=== PATIENT | female | born 1950 | race Caucasian/White ===

== ENCOUNTER → 2019-05-23 10:46 | Outpatient (CLI) | payer BC, SELFPAY ==
--- NOTE | ~2019-05-23 | MM_ITS ---
EXAMINATION: MM screening [facility] BI w stephon HISTORY: Screening mammogram TECHNIQUE: Craniocaudal and mediolateral oblique 3-D tomosynthesis images were obtained and synthetic 2-D images were generated. CAD analysis was submitted and interpreted. COMPARISON: Comparison to multiple prior studies sequentially, with oldest reviewed study dated 05/2014. BREAST PARENCHYMAL COMPOSITION: There are scattered areas of fibroglandular density. FINDINGS: There is no evidence of suspicious mass, calcification, or architectural distortion to sugg est malignancy in either breast. There has been no suspicious interval change. IMPRESSION: 1. No mammographic evidence of malignancy. 2. Recommend routine screening mammography in one year. BI-RADS Category 1: Negative. Reviewed, dictated and finalized at location A. [employer]
== END ==
PROVIDERS: Visit Provider Nurse Practitioner Family
DX: Z12.31 Encounter for screening mammogram for malignant neoplasm of breast (principal)
CPT/HCPCS: 77063; 77067

== ENCOUNTER → 2020-08-16 17:54 | Outpatient (CLI) | payer BC, SELFPAY ==
--- NOTE | ~2020-08-16 | DEXA_ITS ---
Bone Density Report Name: Opal Le Age: 70 Sex: Female Ethnicity: White Date of : 1950 Indication: postmenopausal; screening for osteoporosis; height loss; Referring Provider: KEYLA, MARK ANTHONY Study: Bone densitometry was performed. Exam Date: August 16, 2020 Accession number: [id number] Bone Density: Region BMD T-score Z-score Classification AP Spine (L1-L4) 1.314 2.4 4.5 Normal Femoral Neck (Left) 0.958 1.0 2.7 Normal Total Hip (Left) 1.363 3.4 4.9 Normal Femoral Neck (Right) 1.038 1.7 3.5 Normal Total Hip (Right) 1.294 2.9 4.3 Normal Total Hip Mean 1.329 3.2 4.6 Normal World Health Organization criteria for BMD impression classify patients as: Normal (T-score at or above -1.0), Osteopenia (T-score between -1.0 and -2.5), or Osteoporosis (T-score at or below -2.5). 10-year Fracture Risk: FRAX not reported because: All T-scores for Spine Total, Hip Total, Femoral Neck at or above -1.0 Previous Exams: Region Exam Age BMD T-score BMD Change BMD Change Date g/cm2 vs Baseline vs Previous AP Spine(L1-L4) 08/16/2020 70 1.314 2.4 -0.012 -0.019 05/11/2016 66 1.333 2.6 0.007 0.038 04/04/2010 59 1.295 2.3 -0.031 -0.031 02/21/2007 56 1.326 2.5 Total Hip(Left) 08/16/2020 70 1.363 3.4 0.064* 0.006 05/11/2016 66 1.357 3.4 0.059* 0.036 04/04/2010 59 1.321 3.1 0.022 0.022 02/21/2007 56 1.299 2.9 Total Hip(Right) 08/16/2020 70 1.294 2.9 0.042* 0.019 05/11/2016 66 1.274 2.7 0.023 0.035 04/04/2010 59 1.240 2.4 -0.012 -0.012 02/21/2007 56 1.251 2.5 *Denotes significance at 95% confidence level, LSC for AP Spine = 0.022 g/cm2, LSC for Total Hip = 0.027 g/cm2 Clinical Information Provided by Patient: Has used the following medications: Vitamin D, MTV Patient maximum height was 68.0 Menopause Age: 56 No regular weight bearing exercise Does not regularly consume dairy products Drinks caffeinated beverages Onset of menses at age 13 Number of children 2 Impression: The patient has normal bone mass. No significant bone loss was observed. Discussion: LOW RISK OF FRACTURE; BONE DENSITY IS WELL ABOVE THE MINIMUM DESIRABLE LEVEL AND ABOVE AVERAGE FOR AGE AND SEX AT ALL SKELETAL SITES TESTED. This perso
--- NOTE | ~2020-08-16 | MM_ITS ---
EXAMINATION: MM screening [facility] BI w stephon HISTORY: Screening mammogram TECHNIQUE: Craniocaudal and mediolateral oblique 3-D tomosynthesis images were obtained and synthetic 2-D images were generated. CAD analysis was submitted and interpreted. COMPARISON: 05/23/2019, 05/20/2018, 05/14/2017 bilateral digital screening mammogram examinations BREAST PARENCHYMAL COMPOSITION: The breasts are almost entirely fatty. FINDINGS: Scattered benign calcifications. There is no evidence of suspicious mass, calcification, or architectural distortion to suggest malignancy in either breast. There has been no suspicious interv al change. IMPRESSION: 1. No mammographic evidence of malignancy. 2. Recommend routine screening mammography in one year. BI-RADS Category 1: Negative Reviewed, dictated and finalized at location A.
== END ==
PROVIDERS: Visit Provider Nurse Practitioner
DX: Z12.31 Encounter for screening mammogram for malignant neoplasm of breast (principal); Z78.0 Asymptomatic menopausal state
CPT/HCPCS: 77063; 77067; 77080

== ENCOUNTER → 2021-10-01 14:27 | Outpatient (CLI) | payer BC, SELFPAY ==
--- NOTE | ~2021-10-01 | MM_ITS ---
EXAMINATION: MM screening [facility] BI w stephon HISTORY: Screening TECHNIQUE: Craniocaudal and mediolateral oblique 3-D tomosynthesis images were obtained and synthetic 2-D images were generated. CAD analysis was submitted and interpreted. COMPARISON: Comparison to multiple prior studies sequentially, with oldest reviewed study dated 05/08. BREAST PARENCHYMAL COMPOSITION: The breasts are almost entirely fatty. FINDINGS: There is no evidence of suspicious mass, calcification, or architectural distortion to sugg est malignancy in either breast. There has been no suspicious interval change. IMPRESSION: 1. No mammographic evidence of malignancy. 2. Recommend routine screening mammography in one year. BI-RADS Category 1: Negative Reviewed, dictated and finalized at location A.
== END ==
PROVIDERS: PCP Internal Medicine; Visit Provider Nurse Practitioner
DX: Z12.31 Encounter for screening mammogram for malignant neoplasm of breast (principal)
CPT/HCPCS: 77063; 77067

== ENCOUNTER → 2023-02-11 11:32 | Outpatient (CLI) | payer BC, SELFPAY ==
--- NOTE | ~2023-02-11 | MM_ITS ---
EXAMINATION: MM screening [facility] BI w stephon HISTORY: Screening mammogram TECHNIQUE: Craniocaudal and mediolateral oblique 3-D tomosynthesis images were obtained and synthetic 2-D images were generated. CAD analysis was submitted and interpreted. COMPARISON: 10/01/2021, 08/16/2020, 05/23/2019 BREAST PARENCHYMAL COMPOSITION: The breasts are almost entirely fatty. FINDINGS: No suspicious mass, calcification, or architectural distortion are identified in either nicola ast to suggest malignancy. There has been no suspicious interval change. IMPRESSION: 1. No mammographic evidence of malignancy. 2. Recommend routine screening mammography in one year. BI-RADS Category 1: Negative Reviewed, dictated and finalized at location A. INE RIVETER
== END ==
PROVIDERS: PCP Nurse Practitioner; Visit Provider Nurse Practitioner
DX: Z12.31 Encounter for screening mammogram for malignant neoplasm of breast (principal)
CPT/HCPCS: 77063; 77067

== ENCOUNTER 2024-06-27 13:43 | Outpatient (CLI) | payer BC, SELFPAY ==
--- NOTE | ~2024-06-27 | MM_ITS ---
EXAMINATION: MM screening [facility] BI w stephon HISTORY: Screening TECHNIQUE: Craniocaudal and mediolateral oblique 3-D tomosynthesis images were obtained and synthetic 2-D images were generated. CAD analysis was submitted and interpreted. COMPARISON: Comparison to multiple prior studies sequentially, with oldest reviewed study dated 05/14. BREAST PARENCHYMAL COMPOSITION: Not Dense: The breasts are almost entirely fatty. FINDINGS: There is no evidence of suspicious mass, calcification, or architectural distortion to sugg est malignancy in either breast. There has been no suspicious interval change. IMPRESSION: 1. No mammographic evidence of malignancy. 2. Recommend routine screening mammography in one year. BI-RADS Category 1: Negative Reviewed, dictated and finalized at location A.
== END 2024-06-27 13:44 | disposition home or self-care (01) ==
LOC: MICIMG 13:45
PROVIDERS: PCP Nurse Practitioner; Visit Provider Nurse Practitioner
DX: Z12.31 Encounter for screening mammogram for malignant neoplasm of breast (principal)
CPT/HCPCS: 77063; 77067

== ENCOUNTER 2024-07-06 08:13 | Outpatient (CLI) | payer BC, SELFPAY ==
--- NOTE | ~2024-07-06 | DEXA_ITS ---
Bone Density Report Name: MELANIE VÁZQUEZ Age: 74 Sex: Female Ethnicity: White Date of : 1950 Indication: postmenopausal; screening for osteoporosis; height loss; Referring Provider: KEYLA, MARK ANTHONY Study: Bone densitometry was performed. Exam Date: July 06, 2024 Accession number: [id number] Bone Density: Region BMD T-score Z-score Classification AP Spine(L1-L4) 1.285 2.2 4.5 Normal Femoral Neck (Left) 0.910 0.6 2.5 Normal Total Hip (Left) 1.273 2.7 4.4 Normal Femoral Neck (Right) 0.866 0.1 2.1 Normal Total Hip (Right) 1.208 2.2 3.9 Normal Total Hip Mean 1.240 2.5 4.2 Normal World Health Organization criteria for BMD impression classify patients as: Normal (T-score at or above -1.0), Osteopenia (T-score between -1.0 and -2.5), or Osteoporosis (T-score at or below -2.5). 10-year Fracture Risk: FRAX not reported because: All T-scores for Spine Total, Hip Total, Femoral Neck at or above -1.0 Clinical Information Provided by Patient: Has used the following medications: Vitamin D Patient maximum height was 67 Menopause Age: 54 No regular weight bearing exercise Drinks caffeinated beverages Onset of menses at age 14 Number of children 2 Impression: The patient has normal bone mass. Discussion: LOW RISK OF FRACTURE; BONE DENSITY IS WELL ABOVE THE MINIMUM DESIRABLE LEVEL AND ABOVE AVERAGE FOR AGE AND SEX AT ALL SKELETAL SITES TESTED. This person's bone density is above expected limits for age and sex. This is rarely clinically significant, but should be pursued if there are significant musculoskeletal complaints. The patient should follow a healthful lifestyle (good nutrition with adequate calcium and vitamin D, and appropriate weight-bearing exercise). Follow-Up: Consider repeating this study in 5 years or sooner if there is some new clinical indication. Reported by: MOHAN on 07/06/2024 8:58:00 AM. Reviewed, dictated and finalized at location [facility]
--- OUTSIDE RECORDS SUMMARY | 2024-07-06 08:18 | XMS_ITS | Data Portability ---
Author Organization [place] [facility] [employer], Main Office Address [address] [place] [address] Assessment Encounter Date Assessment Date Assessment LastModified by Organization Details LastModified Time 03/12/2023 03/12/2023 the patient has severe primary osteoarthritis both knee joints. The right knee is the only 1 that bothers her. We talked about treatment options today in detail she wanted proceed with cortisone therefore under sterile conditions I injected the patient's right knee joint in the office with 4 cc 0.5% bupivacaine and 20 mg of Kenalog. Patient tolerated the procedure well. If her knee continues to bother her we did talk about the possibility of trying gel shots. What she really needs his total knee arthroplasty for the best long-term relief however she has a BMI of 45 she would need to lose some significant weight we have talked about this previously. She will work on that I will see her back as needed she will continue with current conservative measures call for any further problems difficulties or questions she voiced understanding agrees above plan. I have advised her that if she wants to try gel shots to call us and advanced we can get those approved as well. Not available 03/12/2023 13:00:58 07/01/2023 07/01/2023 The patient has severe primary osteoarthritis both knees left knee does not bother her right 1 hurts medially we talked about treatment options we have discussed gel shot series possibility she is going to think about it I gave her a brochure on this today but cortisone typically works well for her. Therefore under sterile conditions I injected the patient's right knee joint in the office with 4 cc 0.5% Marcaine and 20 mg of Kenalog. Patient tolerated procedure well. I will see her back as needed we can do this again in 3 months if necessary if she wants to do the gel shots she will call she voiced understanding agrees above plan. Not available 07/01/2023 13:55:22 09/27/2023 09/27/2023 The patient has severe primary osteoarthritis of both knees the right knee is 1 that bothers her. She would like this injected today therefore under sterile conditions I injected the patient's right knee joint in the office with 4 cc of 0.5% Marcaine and 20 mg of Kenalog. Patient tolerated procedure well. I will see her back as needed we can do this again in 3 months if necessary she voiced understanding and agrees with the above plan she will call for any further problems difficulties or questions. Not available 09/27/2023 11:20:39 12/28/2023 12/28/2023 The patient has severe primary osteoarthritis of both knees the left knee does not ever bother her. The right knee gives her a lot of trouble particularly with the medial side where she has burning aching pain that limits her activities. We talked about treatment options today she wanted proceed with cortisone therefore under sterile conditions I injected the patient's right knee joint in the office with 4 cc of 0.5% Marcaine and 20 mg of Kenalog. Patient tolerated the procedure well. She was also given a refill of her diclofenac sodium 75 mg b.i.d. with food. She will use this when needed. I will see her back as needed we can do a shot again in 3 months if necessary, we also talked about gel shots in detail but the cortisone works very well for her so she is going to stick with that for now. She is aware that she would need to lose some weight in order to qualify for total knee arthroplasty somewhere down the road as her BMI is 43.5. She voiced understanding and agrees above plan she will call for any further problems difficulties or questions. Not available 12/28/2023 14:39:29 03/30/2024 03/30/2024 the patient has severe primary osteoarthritis both knee joints. The right knee bothers her the left side does not. At her request under sterile conditions I injected the patient's right knee joint in the office with 4 cc of 0.5% bupivacaine and 20 mg of Kenalog. Patient tolerated the procedure well. I will see her back as needed we can do this again in 3 months if necessary. She did need a refill on her diclofenac 75 mg b.i.d. with food this was called into her pharmacy today with a couple of refills. She will continue work on weight loss in anticipation of likely total knee arthroplasty somewhere down the road. She voiced understanding and agreed with the above plan. Not available 03/30/2024 13:54:57 Plan of Treatment Reminders Order Date Submit Date Provider Last Modified By Organization Details Last Modified Time Details Appointments Any 5 2024 01:30P DEON Fonseca Not available Not available Not available Lab None recorded. Referral None recorded. Procedures injection /aspirati on joint/bur sa (PROC) 2024 025 [email or web address] In-Office Order, Internal Use Only DO Not Attach Compendium DO Not Attach Compendium, Do Not Delete/merge, [id number] 03/30/2024 13:42:26 injection /aspirati on joint/bur sa (PROC) - in office procedure , administe red by provider 2023 024 [email or web address] In-Office Order, Internal Use Only DO Not Attach Compendium DO Not Attach Compendium, Do Not Delete/merge, [id number] 12/28/2023 14:15:34 injection /aspirati on joint/bur sa (PROC) - in office procedure , administe red by provider 2023 024 [email or web address] In-Office Order, Internal Use Only DO Not Attach Compendium DO Not Attach Compendium, Do Not Delete/merge, [id number] 09/27/2023 11:11:11 injection /aspirati on joint/bur sa (PROC) - in office procedure , administe red by provider 2023 024 [email or web address] In-Office Order, Internal Use Only DO Not Attach Compendium DO Not Attach Compendium, Do Not Delete/merge, [id number] 07/01/2023 13:43:30 injection /aspirati on joint/bur sa (PROC) 2022 023 [email or web address] In-Office Order, Internal Use Only DO Not Attach Compendium DO Not Attach Compendium, Do Not Delete/merge, [id number] 03/12/2023 12:18:44 Surgeries None recorded. Imaging XR, knee 2023 024 [email or web address] [facility] [place], [address], [place], [address], 12/28/2023 14:56:37 Medication Orders bupivacai ne HCl 0.5 % (5 mg/mL) injection solution [address] [facility]83, [address] [place] [address], [id number], 03/30/2024 14:22:37 Kenalog 10 mg/mL suspensio n for injection 2024 025 [address] [facility], [address] [place] [address], [id number], 03/30/2024 14:22:37 diclofena c sodium 75 mg tablet,de layed release [address] [facility]29355, [address] [place] [address], [id number], 03/30/2024 14:22:37 Kenalog 10 mg/mL suspensio n for injection [address] [facility]59691, [address] [place] [address], [id number], 12/28/2023 14:20:41 Marcaine 0.5 % (5 mg/mL) injection solution 2023 024 [address] [facility], [address] [place] [address], [id number], 12/28/2023 14:20:41 diclofena c sodium 75 mg tablet,de layed release 2023 [facility] #04068, [address] [place] [address], [id number], 12/28/2023 16:18:33 Marcaine (PF) 0.5 % (5 mg/mL) injection solution [address] [place] [address] [facility] #94043, [address] [place] [address], [id number], 12/28/2023 14:12:50 Kenalog 10 mg/mL suspensio n for injection [address] [facility] #41594, [address] [place] [address], [id number], 12/28/2023 14:12:44 Kenalog 10 mg/mL suspensio n for injection [address] [facility] #01581, [address] [place] [address], [id number], 12/28/2023 14:12:44 Marcaine (PF) 0.5 % (5 mg/mL) injection solution [address] [facility] #49687, [address] [place] [address], [id number], 12/28/2023 14:12:50 bupivacai ne HCl 0.5 % (5 mg/mL) injection solution [address] [facility] #44618, [address] [place] [address], [id number], 12/28/2023 14:12:38 Kenalog 10 mg/mL suspensio n for injection [address] [facility] #84561, [address] [facility], [place], [place], [id number], 12/28/2023 14:12:44 Patient TargetsNo targets recorded. Patient InstructionsNo instructions recorded. Reason for Referral None Reported. Results Created Date Observation Date Name Description Value Unit Range Abnormal Flag Note LastModifiedBy Organization Detail LastModifiedTime 12/28/19 24 XR, knee No observ ation record ed. [facility] [place] [address], [place], [address], 12/28/2023 14:40:46 Result Notes None recorded. Problems Name Problem SNOMED Code Status Onset Date Resolution Date Notes Provider Name and Address Organization Details Recorded Time Bilateral osteoarthr itis of knees 4606374334111 07 Active 2022 Not Available [facility] 3 23:08:25 Pain of right knee joint 0050353094584 00 Active 2022 Not Available [facility] 3 23:08:25 Osteoarthr itis of right knee joint 7251647672658 00 Active 2023 ANAND Nunez, [facility] 4 14:13:48 Osteoarthr itis of left knee joint 4505399664126 09 Active 2023 DEON Valdez [address] [facility] [address], [place], [address] , [facility] 4 14:41:04 Problem Notes None recorded. Procedures Surgical History Date Name Laterality Status Provider Name and Address Organization Details Recorded Time Cholecystectomy completed Not Available [facility] 05/27/2022 23:06:17 repair of meniscus completed Not Available [facility] 05/27/2022 23:06:17 Imaging Results Imaging Date Name Status LastModified by Organiz ation Details LastModified Time 12/28/2023 XR, knee completed [facility] [place] [address], [place], [address], 12/28/2023 14:40:46 Procedure Notes None recorded. Medical Equipment None Reported. Allergies No known drug allergies Medications Name Sig Start Date Stop Date Status Note LastModified by Organization Details LastModified Time citalopram 40 mg tablet TAKE 1 TABLET BY MOUTH EVERY DAY active Not Available Not Available No t Available trazodone 50 mg tablet TAKE 1 TABLET BY MOUTH AT BEDTIME active Not Available Not Available No t Available ondansetron HCl 4 mg tablet TAKE 1 TO 2 TABLETS BY MOUTH 30 MINUTES PRIOR TO STARTING COLONSCOP Y PREP 12/27 completed Not Available Not Available Not Available bupivacaine HCl 0.5 % (5 mg/mL) injection solution Take 20 mg by injection route. 2024 active Not Available Not Available Not Avai lable Kenalog 10 mg/mL suspension for injection Take 20 mg by injection route. 2024 active [facility]: 0003- 0494- 20 Not Available Not Available Not Available simvastatin 20 mg tablet TAKE 1 TABLET BY MOUTH EVERY EVENING active Not Available Not Available No t Available diclofenac sodium 75 mg tablet,steff yed release Take 1 tablet twice a day by oral route. active Not Available Not Available No t Available ergocalcife rol (vitamin D2) 1,250 mcg (50,000 unit) capsule TAKE 1 CAPSULE BY MOUTH 3 TIMES A MONTH active Not Available Not Available No t Available Marcaine (PF) 0.5 % (5 mg/mL) injection solution Take 20 mg by injection route. 12/27 completed Not Available Not Available Not Available lidocaine (PF) 10 mg/mL (1 %) injection solution In office injection administe red by the provider 10/06 completed [place]: 0409- 4276- 17 Not Available Not Available Not Available peg 3350-electr olytes 236 gram-22.74 gram-6.74 gram-5.86 gram solution FOLLOW INSTRUCTI ONS PROVIDED BY THE OFFICE 12/27 completed Not Available Not Available Not Available ropivacaine (PF) 5 mg/mL (0.5 %) injection solution Take 20 mg by injection route. 12/27 completed [facility] [address]405 -064- 01 Not Available Not Available Not Available Vitals Date Recorded Body height Body mass index (BMI) Body weight Provider Name and Address Organization Details Last Updated DateTime 03/12/2023 170.18 cm 44.2 kg/m2 593452.05 g Cheryle Quiroga CNA [facility] [employer] [facility] 03/12/2023 12:16:41 Date Recorded Body height Body mass index (BMI) Body weight Provider Name and Address Organization Details Last Updated DateTime 07/01/2023 170.18 cm 43.4 kg/m2 864100.09 g Cheryle JunaidANAND lemus [facility] [employer] 07/01/2023 13:41:51 Date Recorded Body height Body mass index (BMI) Body weight Provider Name and Address Organization Details Last Updated DateTime 09/27/2023 170.18 cm 43.4 kg/m2 624121.09 g Cheryle JunaidANAND lemus [facility] [employer] 09/27/2023 11:08:36 Date Recorded Body height Body mass index (BMI) Body weight Provider Name and Address Organization Details Last Updated DateTime 12/28/2023 170.18 cm 43.5 kg/m2 759979.68 g Cheryle Junaid, [employer] [employer] 12/28/2023 14:12:11 Date Recorded Body height Body mass index (BMI) Body weight Provider Name and Address Organization Details Last Updated DateTime 03/30/2024 170.18 cm 41.5 kg/m2 605632.98 g Cheryle Junaid, [employer] [facility] [employer] 03/30/2024 13:40:21 Social History Question Answer Notes LastModified by Organizat ion Details LastModified Time Tobacco Smoking Status Never Smoker Not Available [facility] 05/27/2022 23:05:58 What Is Your Level Of Alcohol Consumption? None [id number] Information not available 05/27/2022 How Much Tobacco Do You Smoke? No [id number] Information not available 05/27/2022 Sex: Unknown Functional Status None recorded. Mental Status None recorded. Family History Relationship Description Onset Age of this Age Resolved Age Notes LastModified by Organization Details LastModified Time Mother Family history of malignant neoplasm [id number] Not available 05/27/2022 23:06:22 Maternal Aunt Family history of malignant neoplasm [id number] Not available 05/27/2022 23:06:22 Medical History No medical history recorded. Gynecological HistoryNo gynecological history recorded. Obstetrics History GPAL:G 0 P 0 0 0 0 Past Encounters Encounter ID Performer Location Encounter Start Date Encounter Closed Date Diagnosis/Indication Diagnosis SNOMED-CT Code Diagnosis ICD10 Code Diagnosis Note [id number] [facility] [place] [address] [place] [address] 08/30/2020 00:00:00 08/30/2020 15:16:19 [id number] [facility] [place] [address] [place] [address] 10/04/2020 00:00:00 10/04/2020 14:17:51 [id number] [facility] [place] [address] [place] [address] 05/22/2021 00:00:00 05/22/2021 11:21:55 [id number] [facility] [place] [address] [place] [address] 10/06/2021 00:00:00 10/06/2021 12:01:22 [id number] [facility] [place] [address] [place] [address] 02/06/2022 00:00:00 02/06/2022 14:24:54 [id number] [facility] [place] [address] [place] [address] 05/25/2022 00:00:00 05/25/2022 13:13:02 [id number] DEON Valdez [facility] [place] [address] [place] [address] 08/25/2022 13:55:03 08/25/2022 14:56:24 Pain of right knee joint 4592038848 50884 M25.561 Bilateral osteoarthritis of knees 6888755690 87799 M17.0 [id number] DEON Valdez [facility] [place] [address] [place] [address] 11/27/2022 14:09:26 11/27/2022 14:42:28 Pain of right knee joint 0769343800 45616 M25.561 Bilateral osteoarthritis of knees 5100307465 55652 M17.0 [id number] DEON Valdez [facility] [place] [address] [place] [address] 03/12/2023 12:06:08 03/18/2023 16:39:00 Bilateral osteoarthritis of knees 9426722773 04782 M17.0 Pain of ri ght knee joint 1559352292 99100 M25.561 [id number] DEON Valdez [facility] [place] [address] [place] [address] 07/01/2023 13:38:49 07/01/2023 14:01:16 Bilateral osteoarthritis of knees 9657728425 56477 M17.0 Pain of ri ght knee joint 3492478219 95470 M25.144 [id number] DEON Valdez [facility] [place] [address] [place] [address] 09/27/2023 10:59:26 09/27/2023 11:32:25 Bilateral osteoarthritis of knees 8405568463 62817 M17.0 Pain of ri ght knee joint 1877941760 02384 M25.044 [id number] DEON Valdez [facility] [place] [address] [place] [address] 12/28/2023 13:56:54 12/28/2023 14:56:37 Pain of right knee joint 2808430500 33883 M25.561 Osteoarthr itis of right knee joint 4663880901 85659 M17.11 Osteoarthr itis of left knee joint 0529043737 84722 M17.12 [id number] DEON Valdez [facility] [place] [address] [place] [address] 03/30/2024 13:36:50 03/30/2024 14:24:04 Osteoarthritis of right knee joint 1419358515 93310 M17.11 Pain of ri ght knee joint 6860473884 33158 M25.561 Health Concerns Section Related Observation LastModified by Organization Detai ls LastModified Time None Recorded Concern Status LastModified by Organization Details LastModified Time None Recorded Advance Directives Directive None Recorded Payers Encounter Date Sequence Insurance Name Policy Number Policy Ruiz Covered Member ID Ruiz Member ID Guarantor Name 03/12/2023 1 [employer] [employer] [place] [place] [place] 104 Opal Le [id number] Opal Bearffer 07/01/2023 1 [employer] 104 Opal Le [id number] Opal Le 09/27/2023 1 [employer] 104 Opal Le [id number] Opal Le 12/28/2023 1 [employer] 104 Opal Bearffer [id number] Opal Bearffer 03/30/2024 1 [employer] 104 Opal Le [id number] Opal Bearffer Notes Date Note Type Note Provider Name and Address Organization Details Recorded Time 03/12/2023 text/html Patient returns with right knee pain. She has severe primary osteoarthritis both knees with [id number]-[id number] changes in medial compartments and varus deformities. Subchondral sclerosis and hypertrophic spurring is also noted patellofemoral articulation shows significant narrowing as well with hypertrophic changes. Surprisingly she states her left knee really does not bother her despite the fact that the knees look similar side to side on x-ray. Right knee has aching pain mostly medially occasion the knee feels as though it wants to give out because of sharp stabbing pains. Shot of cortisone to give her good relief for couple of months it has been 3-1/2 months since her last injection she would like another 1 today. Denies any new trauma injury no effusion or swelling no erythema heat or other signs of infection. DEON Valdez [address] [place] [address], [facility] [address], [place], [address], [facility] 03/12/2023 13:01:15 07/01/2023 text/html Patient returns with right knee pain she is severe primary osteoarthritis both knees with [id number]-[id number] changes in medial compartments however her left knee does not bother her. Her right knee aches and throbs on the medial compartment she has startup pain rest pain and night pain it bothers her quite a bit but shot of cortisone to give her excellent relief for about 3 months it has been 3-1/2 months since her last injection. She would like to repeat this today denies any new problems with the knee no new trauma or injury no erythema effusion or signs of infection. DEON Valdez [address], [place], [address], [facility] 07/01/2023 13:55:55 09/27/2023 text/html Patient returns for recheck of her right knee she has severe primary osteoarthritis both knees but the left knee does not bother her. The right knee gets good relief from cortisone for almost exactly 3 months then she comes back it has been 3 months since her last injection last week or 2 she has been having more pain about an 8 on a scale of 1-10 and limping. Denies any effusion or swelling no erythema heat or other signs of infection and no new trauma or injury. She would like another shot of cortisone right knee today. DEON Valdez [address], [place], [address], [facility] 09/27/2023 11:20:51 12/28/2023 text/html Patient returns with right knee pain she comes in every 3 months for cortisone injections the injections gave her great relief for about 3 months at a time. She denies any new problems with the knee no new trauma or injury she is having a lot of pain in the medial compartment however. This just flared up recently her pain is about a 7 to an 8 on a scale of 1-10 denies any effusion or swelling has aching pain particularly with ambulation squatting kneeling going up and down stairs. She is now somewhat limited in her daily activities recently she ran out of her diclofenac so this is also causing her to have a little more pain. She comes in today requesting repeat cortisone injection right knee we are getting new updated x-rays today as it has been more than a year since her last x-rays. New past medical history sheet was reviewed and signed on the intake sheet of today's date drug allergies current medications family social history previous surgical history 10 point review of systems was reviewed and discussed in detail today with the patient. The patient is pretty healthy she has some high cholesterol but otherwise fairly unremarkable. DEON Valdez [address], [facility] [address], [place], [address], [facility] 12/28/2023 14:41:43 03/30/2024 text/html Patient returns with right knee pain shots of cortisone every 3 months gave her very good relief in the last almost 3 months. Her knee is flared up again since her last injections she would like to repeat that shot today denies any new problems with the knee no new trauma or injury she states she has lost a few lb recently and this seems to be helping her knee pain also she is going to continue work on weight loss. Currently she is 5 ft 7 in tall 265 lb BMI is a little too high for total knee arthroplasty she is going to work on that. She comes in today requesting repeat cortisone injection right knee she has severe primary osteoarthritis in both knees left knee never really bothers her. Her x-rays 3 months ago show mild varus deformities of both knees with ahfr-tk-bnsa changes in the medial compartments and subchondral thickening particularly in the medial tibial plateau. Complete loss of the medial joint space is noted bilaterally. The patellofemoral articulations show moderate narrowing with very small marginal osteophytes. DEON Valdez [address], [facility] [address], [place], [address], [facility] 03/30/2024 13:55:13 OBGyn Episode No OBEpisode recorded.
--- OUTSIDE RECORDS SUMMARY | 2024-07-06 08:18 | XMS_ITS | Clinical Summary ---
Author Organization [facility] Address [address] [place] [address] Care Team Providers Care Bag Bundler Name Role Phone Tanya Matute MD Primary Care Provider Source Comments [facility],non-owned Affiliates and Associated Physician Practices is amultiple site organization consisting of ambulatory clinics and hospital sitesin [place], [place]. This disclosure is being madepursuant to the Care Everywhere program and may not contain all information available regarding this patient. Last updated 17.[employer] [facility] Allergies No known active allergies Medications * Be aware that medications may not be up to date on this document. Alwaysverify current medications with the patient. Medication Sig Dispensed Refills Start Date End Date Status zolpidem (AMBIEN) 10 MG tablet Take 10 mg by mouth nightly as needed for Insomnia. Active vitamin D 1000 [place] [address] Units by mouth daily. Active multivitamin daily tablet Take 1 Tab by mouth daily. Active calcium carbonate (CALTRATE) 600 MG tablet Take 600 mg by mouth daily. Active Social History Tobacco Use Types Packs/Day Years Used Date Smoking Tobacco: Never Alcohol Use Standard Drinks/Week Comments No 0 (1 standard drink = 0.6 oz pur e alcohol) Sex and Gender Information Value Date Recorded Sex Assigned at Not on file Gender Identity Not on file Sexual Orientation Not on file Last Filed Vital Signs Vital Sign Reading Time Taken Comments Blood Pressure 127/69 04/22/2009 6:41 PM HOME ECONOMICS EXPERT Pulse 85 04/22/2009 6:41 PM HOME ECONOMICS EXPERT Temperature 36.1 C (97 F) 04/22/2009 4:11 PM HOME ECONOMICS EXPERT Respiratory Rate 16 04/22/2009 4:54 PM HOME ECONOMICS EXPERT Oxygen Saturation 98% 04/22/2009 6:41 PM HOME ECONOMICS EXPERT Inhaled Oxygen Concentration - - Weight 108.4 kg (239 lb) 04/22/2009 10:18 AM HOME ECONOMICS EXPERT Height 172.7 cm (5' 8 ) 04/22/2009 10:18 AM HOME ECONOMICS EXPERT Body Mass Index 36.34 04/22/2009 10:18 AM HOME ECONOMICS EXPERT Plan of Treatment Health Maintenance Due Date Last Done Comments BONE DENSITY TESTING 1950 COLOGUARD (AGES 45-75) - COL ON CA SCREENING 1951 COLON MONITORING 1951 COLONOSCOPY - COLON CA SCREENING 1950 CT COLONOGRAPHY - COLON CA SCREENING 1950 Colorectal Cancer Screening 1950 FIT - COLON CA SCREENING 1951 FLEX SIG - COLON CA SCREENING 1951 LIPID TESTING 1950 MAMMOGRAM 1951 HEPATITIS C SCREENING 04/23/1969 DTAP/TDAP/TD VACCINES (1 - Tdap) 1970 PNEUMOCOCCAL VACCINE 50+ (1 of 1 - PCV) 2001 ZOSTER VACCINE (1 of 2) 2001 COVID-19 VACCINE (1 - 2023-2 5 season) 2023 DEPRESSION SCREENING 03/29/2024 INFLUENZA VACCINE (Season Ended) 2024 Respiratory Syncytial Virus (RSV) Vaccine Pt: or over 60 yrs (1 - 1-dose 75+ series) 2026 HEPATITIS B VACCINE Aged Out No longe r eligible based on patient's age to complete this topic HIB VACCINE Aged Out No longer eligi ble based on patient's age to complete this topic HPV VACCINE Aged Out No longer eligi ble based on patient's age to complete this topic MENINGOCOCCAL (Group B) VACC INE SHARED DECISION-MAKING Aged Out No longer eligibl e based on patient's age to complete this topic MENINGOCOCCAL GROUPS A/C/Y/W VACCINE Aged Out No longer eligible b ased on patient's age to complete this topic Advance Directives Documents on File Type Date Recorded Patient Visitor Services Specialist Expl anation Adv Directive/Living Will/POA 05/01/2009 10:25 AM Care Teams Bag Bundler Relationship Specialty Start Date End Date Tanya Matute MD [address] [phone] [facility] - General 04/03/09
--- OUTSIDE RECORDS SUMMARY | 2024-07-06 08:18 | XMS_ITS | Continuity of Care Document ---
Author Organization [facility] Address [address] [place] [address] Phone Care Team Providers Care Rental Boats Caretaker Name Role Phone Tanya Matute MD Unavailable Unavailable Allergies, Adverse Reactions, Alerts Substance Reaction Status Criticality No Known Allergies Active No Inform ation Medications Medication Instructions Dosage Effective Dates (start - stop) Status Comments TRAZODONE 50MG TABLETS TAKE 1 TABLET BY MOUTH AT BEDTIME - Active SIMVASTATIN 20MG TABLETS TAKE 1 TABLET BY MOUTH EVERY EVENING - Active CITALOPRAM 40MG TABLETS TAKE 1 TABLET BY MOUTH EVERY DAY - Active Calcium 600-D3 Plus 600 mg calcium-800 unit-50 mg tablet take one daily - Active Aspirin Low Dose 81 mg tablet,delayed release take 1 tablet by oral route every day 81 MG - Active Miralax 17 gram/dose oral powder take 15 milliliter by oral route every day powder mixed with 8oz of water or juice until bowels are regular 17 G - Active diclofenac sodium 75 mg tablet,delayed release prn - Active Vitamin D2 50,000 unit capsule take 1 capsule by oral route every week - Active Multiple Vitamin, Womens Tab i po daily - Active simvastatin 20 mg tablet TAKE 1 TABLET BY MOUTH EVERY EVENING - No Longer Active trazodone 50 mg tablet TAKE 1 TABLET BY MOUTH AT BEDTIME - No Longer Active Procedures Procedure Date FALL RISK ASSESSMENT DOC'D PRES/ABSN URINE INCON ASSESS Pt inelig neg scrn depres Brief Emotional/Behavioral A ssessment, With Scoring/Doct, Per Stndrd Instrument IMMUN ADMIN (INC PERCUTANEOUS) SINGLE, F IRST INJ RIV3 VACCINE NO PRESERV IM Pfizer Comirnaty tri-sucrose COVID Vacci ne 30 mcg/ Covid Vaccine Admin, Single Dose 2023 PREVENTATIVE-EST: 65 & OVER BODY MASS INDEX DOCD SYST BP GE 130 - 139MM HG DIAST BP 80-89 MM HG CBC, INC PLATELETS AND DIFFERENTIAL COMPREHEN METABOLIC PANEL CMP 4 HEMOGLOBIN A1C HGA1C, GLYCO LIPID PANEL MICROALBUMIN, QN (URINE) CREATININE, (U-R) ROUTINE VENIPUNCTURE CBC, INC PLATELETS AND DIFFERENTIAL COMPREHEN METABOLIC PANEL CMP 3 HEMOGLOBIN A1C HGA1C, GLYCO LIPID PANEL ROUTINE VENIPUNCTURE Pt inelig neg scrn depres FALL RISK ASSESSMENT DOC'D PRES/ABSN URINE INCON ASSESS IMMUN ADMIN (INC PERCUTANEOUS) SINGLE, F IRST INJ Flu Vac, quad (RIV4), Preservative And A ntibiotic Free IM PREVENTATIVE-EST: 65 & OVER BODY MASS INDEX DOCD SYST BP GE 130 - 139MM HG DIAST BP < 80 MM HG IMMUN ADMIN (INC PERCUTANEOUS) SINGLE, F IRST INJ Zoster Vaccine (HZV) (SHINGRIX), Intramu scular FALL RISK ASSESSMENT DOC'D PRES/ABSN URINE INCON ASSESS Pt inelig neg scrn depres Brief Emotional/Behavioral A ssessment, With Scoring/Doct, Per Stndrd Instrument PREVENTATIVE-EST: 65 & OVER BODY MASS INDEX DOCD SYST BP GE 130 - 139MM HG DIAST BP 80-89 MM HG CBC, INC PLATELETS AND DIFFERENTIAL COMPREHEN METABOLIC PANEL CMP 2 HEMOGLOBIN A1C HGA1C, GLYCO LIPID PANEL ROUTINE VENIPUNCTURE Pt inelig neg scrn depres FALL RISK ASSESSMENT DOC'D PRES/ABSN URINE INCON ASSESS Brief Emotional/Behavioral A ssessment, With Scoring/Doct, Per Stndrd Instrument Pt inelig neg scrn depres PREVENTATIVE-EST: 65 & OVER BODY MASS INDEX DOCD SYST BP LT 130 MM HG DIAST BP 80-89 MM HG CBC, INC PLATELETS AND DIFFERENTIAL COMPREHEN METABOLIC PANEL [facility] HEMOGLOBIN A1C HGA1C, GLYCO LIPID PANEL ROUTINE VENIPUNCTURE IMMUN ADMIN (INC PERCUTANEOUS) SINGLE, F IRST INJ TDAP INTRAMUSCULAR USE FALL PLAN OF CARE DOC'D URINE INCON PLAN DOC'D PRES/ABSN URINE INCON ASSESS Brief Emotional/Behavioral A ssessment, With Scoring/Doct, Per Stndrd Instrument Clin depression screen doc OFFICE [id number] BODY MASS INDEX DOCD SYST BP GE 130 - 139MM HG DIAST BP < 80 MM HG FALL PLAN OF CARE DOC'D URINE INCON PLAN DOC'D PRES/ABSN URINE INCON ASSESS Brief Emotional/Behavioral A ssessment, With Scoring/Doct, Per Stndrd Instrument Pt inelig neg scrn depres CBC, INC PLATELETS AND DIFFERENTIAL COMPREHEN METABOLIC PANEL CMP 9 HEMOGLOBIN A1C HGA1C, GLYCO LIPID PANEL ROUTINE VENIPUNCTURE PREVENTATIVE-EST: 65 & OVER BODY MASS INDEX DOCD SYST BP GE 130 - 139MM HG DIAST BP < 80 MM HG Advance Directives Directive Yes / No Effective Date File Name No Information Encounters Encounter Description Practice Location Reason(s) For Visit Diagnoses Date Provider Providers Copied on Encounter [facility], [address], [place], [place], [address] , tel: [phone] [facility] No Information 4 Juju Martínez. [facility] [address] [place] [address], [place], [place], [address], . tel:[phone] [facility], [address], [place], [place], [address] , tel: [phone] [facility] No Information 4 Juju Martínez. [facility], [address], [place], [place], [address], . [phone] PREVENTATIVE -EST: 65 & OVER [facility], [address], [place], [place], [address] , tel: [phone] [facility] preventive exam (chief complaint)f ollow up (chief complaint)C hronic Conditions (chief complaint) Encounter for general adult medical examination without abnormal findingsEncounter for immunizationPerson al history of colonic polypsDyslipidemia PrediabetesAtheros clerosis of both carotid arteriesObstructiv e sleep apnea (adult) (pediatric)GERD without esophagitisModerat pankaj severe recurrent major depressionPrimary osteoarthritis, unspecified siteSenile purpuraClass 3 ObesityBody mass index [BMI] 45.0-49.9, adult Nov- 4 Juju Martínez. [facility] [place] [address], [place], [place], [address], [place]. tel:[phone] Referring Provider: Tanya Coles, [address] [place] [address], [place], [address] . tel:[phone] [facility], [address], [place], [place], [address] , [place] tel:[phone] [facility] Moderately severe recurrent major depression Sep- 2-202 4 Juju Martínez. [address] [place] [address], [place], [place], [address], [place]. tel:[phone] [facility], [address], [place], [place], [address] , tel:[phone] [facility] No Information Jun- 0-202 4 Juju Martínez. [address] [place] [address], [place], [place], [address], [place]. tel:[phone] [facility], [address], [place], [place], [address] , tel:[phone] [facility] No Information Dec-0 3-202 3 Juju Martínez. [address] [place] [address], [place], [place], [address], [place]. tel:[phone] [facility], [address], [place], [place], [address] , tel:[phone] [facility] No Information Sep-2 6- 3 Ru Smith Starla. [address] [place] [address], [place], [place], [address], [place]. tel:[phone] Referring Provider: Tanya Coles, [address] [place] [address], [place], [address] . tel:[phone] PREVENTATIVE -EST: 65 & OVER [facility], [address], [place], [place], [address] , [place] tel:[phone] [facility] preventive exam (chief complaint)C hronic Conditions (chief complaint) Encounter for general adult medical examination without abnormal findingsPersonal history of colonic polypsDyslipidemia Atherosclerosis of both carotid arteriesPrediabete sObstructive sleep apnea (adult) (pediatric)GERD without esophagitisMajor depression, recurrent, full remissionMorbid obesityBody mass index [BMI] 40.0-44.9, adultPrimary osteoarthritis, unspecified siteSenile purpura Sep-0 3 Ru Cha. [address] [place] [address], [place], [place], [address], [place]. tel:[phone] Referring Provider: Tanya Coles, [address] [place] [address], [place], [address] . tel:[phone] [facility], [address], [place], [place], [address] , tel:[phone] [facility] No Information 2 Juju Martínez. [address] [place] [address], [place], [place], [address], [place]. tel:[phone] Referring Provider: Tanya Coles, [address] [place] [address], [place], [address] . tel:[phone] [facility], [address], [place], [place], [address] , tel:[phone] [facility] No Information 2 Juju Martínez. [address] [place] [address], [place], [place], [address], [place]. tel:[phone] [facility], [address], [place], [place], [address] , tel:[phone] [facility] No Information 2 Juju Martínez. [address] [place] [address], [place], [place], [address], [place]. tel:[phone] [facility], [address], [place], [place], [address] , tel:[phone] [facility] No Information 2 Juju Martínez. [address] [place] [address], [place], [place], [address], . tel:[phone] Referring Provider: Tanya Coles, [address] [place] [address], [place], [address] . tel:[phone] PREVENTATIVE -EST: 65 & OVER [facility], [address], [place], [place], [address] , [place] tel:[phone] [facility] preventive exam (chief complaint)f ollow up (chief complaint)C hronic Conditions (chief complaint) Morbid (severe) obesity due to excess caloriesBody mass index [BMI] 45.0-49.9, adultEncounter for general adult medical examination without abnormal findingsPersonal history of colonic polypsDyslipidemia Atherosclerosis of both carotid arteriesPrediabete sObstructive sleep apnea (adult) (pediatric)GERD without esophagitisInsomni a, unspecified typeMajor depression, recurrent, full remission 2 Juju Martínez. [address] [place] [address], [place], [place], [address], . tel:[phone] Referring Provider: Tanya Coles, [address] [place] [address], [place], [address] . tel:[phone] PREVENTATIVE -EST: 65 & OVER [facility], [address], [place], [place], [address] , [place] tel:[phone] [facility] preventive exam (chief complaint)C hronic Conditions (chief complaint) Body mass index (BMI) 45.0-49.9, adultDyslipidemiaM ild episode of recurrent major depressive disorderObstructiv e sleep apnea (adult) (pediatric)Atheros clerosis of both carotid arteriesGERD without esophagitisPrediab etesPersonal history of colonic polypsEncntr for general adult medical exam w/o abnormal findingsMorbid obesity 1 Ru Cah. [address] [place] [address], [place], [place], [address], . tel:[phone] Referring Provider: Tanya Coles, [address] [place] [address], [place], [address] . tel:[phone] OFFICE [id number] TAILED [facility], [address], [place], [place], [address] , [phone] [facility] Depression (chief complaint) Body mass index (BMI) 45.0-49.9, adultModerate episode of recurrent major depressive disorderInsomnia, unspecified typeMorbid obesity Mar-0 2-202 0 Ru Cha. [address] [place] [address], [place], [place], [address], [place]. tel:[phone] Referring Provider: Tanya Coles, [address] [place] [address], [place], [address] . tel:[phone] PREVENTATIVE -EST: 65 & OVER [facility], [address], [place], [place], [address] , tel:[phone] [facility] preventive exam (chief complaint)C hronic Conditions (chief complaint) Body mass index (BMI) 40.0-44.9, adultEncntr for general adult medical exam w/o abnormal findingsPersonal history of colonic polypsDyslipidemia PrediabetesMorbid obesity, unspecified obesity typeObstructive sleep apnea (adult) (pediatric)GERD without esophagitisMild episode of recurrent major depressive disorderUrge urinary incontinenceAthero sclerosis of both carotid arteries Pedro-0 1-201 9 Ru Cha. [address] [place] [address], [place], [place], [address], [place]. tel:[phone] Referring Provider: Tanya Coles, [address] [place] [address], [place], [address] . tel:[phone] [facility], [address], [place], [address] , [place] [phone] [facility] Body mass index (BMI) 40.0-44.9, adultEncntr for general adult medical exam w/o abnormal findingsPersonal history of colonic polypsDyslipidemia PrediabetesOcclusi on and stenosis of bilateral carotid arteriesMorbid obesity, unspecified obesity typeObstructive sleep apnea (adult) (pediatric)Mild episode of recurrent major depressive disorderGERD without esophagitis Aug-0 8 [facility] Dunkertonmariah Cha. [address] [place] [address], [place] [address], [place], [place], [address], . tel:[phone] Referring Provider: Tanya Coles, [address] [place] [address], [place], [address] . tel:[phone] [facility], [address], [place], [place], [address] , [place] tel: [phone] [facility] Encntr for general adult medical exam w/o abnormal findingsPersonal history of colonic polypsOcclusion and stenosis of bilateral carotid arteriesDyslipidem iaPrediabetesMorbi d obesity, unspecified obesity typeObstructive sleep apnea (adult) (pediatric)GERD without esophagitisMild episode of recurrent major depressive disorderInsomnia, unspecified typeEncounter for immunization 7 Vences Sarahmariah Cha. [address] [place] [address], [place], [place], [address], [place]. tel:[phone] Referring Provider: Tanya Coles, [address] [place] [address], [place], [address] . tel:[phone] [facility], [address], [place], [address] , [place] tel: [phone] [facility] Morbid obesity, unspecified obesity type Apr-2 7 Juju Martínez. [address] [place] [address], [place] [address], [place], [place], [address], [place]. tel:[phone] [facility], [address], [place], [place], [address] , [place] tel: [phone] [facility] Insomnia, unspecified typeDyslipidemiaSc reening for cardiovascular conditionPrediabet esMorbid obesity due to excess caloriesPhysical examMild episode of recurrent major depressive disorder 6 Tosha Valdez. [address], [place], [place], [address], [place]. tel:[phone] Referring Provider: Tanya Coles, [address] [place] [address], [place], [address] . tel:[phone] [facility], [address], [place], [place], [address] , [place] tel:[phone] [facility] Prediabetes Juju aMrtínez. [address] [place] [address], [place], [place], [address], [place]. tel:[phone] [facility], [address], [place], [place], [address] , [place] tel:[phone] [facility] ROUTINE MEDICAL EXAMHypercholester olemiaSleep Apnea, ObstructiveInsomni a, OtherMajor depressive affective disorder, single episode, mild degreeOsteoarthros is, localized, primary, involving lower legPersonal history of colonic polypsCarotid atherosclerosisMor bid obesity 5 Juju Martínez. [address] [place] [address], [place], [place], [address], [place]. tel:[phone] Referring Provider: Tanya Coles, [address] [place] [address], [place], [address] . tel:[phone] [facility], [address], [place], [place], [address] , [place] tel:[phone] [facility] Insomnia, unspecifiedMajor depressive disorder, single episode, unspecified degreePure hypercholesterolem iaMorbid obesityPersonal history of colonic polypsOsteoarthros is, localized, primary, involving unspecified siteUnspecified sleep apnea Nov- 4 Ru Cha. [address] [place] [address], [place], [place], [address], [place]. tel:[phone] Referring Provider: Tanya Coles, [address] [place] [address], [place], [address] . tel:[phone] [facility], [address], [place], [place], [address] , [place] tel:[phone] [facility] Screening for depressionRoutine Medical ExamHypercholester olemiaMajor depressive affective disorder, single episode, mild degreeSleep Apnea, ObstructiveInsomni a, OtherPersonal history of colonic polypsObesity, MorbidOsteoarthros is, localized, primary, involving lower legRoutine Medical Exam 4 Juju Martínez. [address] [place] [address], [place] [address], [place], [place], [address], [place]. tel:[phone] Referring Provider: Tanya Coles, [address] [place] [address], [place], [address] . tel:[phone] [facility] [address], [place], [place], [address] , [place] tel:[phone] [facility] Pure hypercholesterolem iaMajor depressive affective disorder, single episode, mild degreeOsteoarthros is, localized, primary, involving lower legPersonal history of colonic polyps 3 Juju Martínez. [address] [place] [address], [place], [place], [address], [place]. tel:[phone] Referring Provider: Tanya Coles, [address] [place] [address], [place], [address] . tel:[phone] [facility] [address], [place], [place], [address] , [place] tel:[phone] [facility] Osteoarthritis, knee May- 3 Sherin Atkinson. [address] [place] [address], [place], [address], [place]. tel:[phone] [facility], [address], [place], [place], [address] , [place] tel:[phone] [facility] Popliteal pain 3 Arvind Keller. [address] [place] [address], [place], [address]. tel:[phone] Referring Provider: Tanya Coles, [address] [place] [address], [place], [address] . tel:[phone] [facility], [address], [place], [place], [address] , tel:[phone] [facility] Morbid obesityPure hypercholesterolem iaObstructive sleep apnea (adult)(pediatric) Insomnia, unspecifiedMajor depressive affective disorder, single episode, mild degreePersonal history of colonic polypsRoutine general medical examination at a [facility] facility 2 Juju Martínez. [address] [place] [address], [place] [address], [place], [place], [address], [place]. tel:[phone] Referring Provider: Tanya Coles, [address] [place] [address], [place], [address] . tel:[phone] [facility], [address], [place], [place], [address] , [place] tel:[phone] [facility] Sinus infectionCough 0201 2 Justyn Martínezureen. [address] [place] [address], [place], [place], [address], [place]. tel:[phone] Referring Provider: Tanya Coles, [address] [place] [address], [place], [address] . tel:[phone] [facility], [address], [place], [place], [address] , [place] tel:[phone] [facility] Thumb painOther Malaise And Fatigue 0 7201 2 Juju Martínez. [address] [place] [address], [place] [address], [place], [place], [address], [place]. tel:[phone] Referring Provider: Tanya Coles, [address] [place] [address], [place], [address] . tel:[phone] [facility], [address], [place], [place], [address] , [place] tel:[phone] [facility] Obstructive sleep apnea (adult)(pediatric) Osteoarthrosis, localized, primary, involving loweNEED FOR PROPHYLACTIC VACCINATION WITH COMBINED DIPHTHERIA-TETANUS -PERTUSSIS (DTP) (DTAP) VACCINEPure hypercholesterolem iaPersonal history of colonic polypsMajor depressive affective disorder, single episodInsomnia, unspecifiedRoutine general medical examination at a health care facility 1 Juju Martínez. [address] [place] [address], [place], [place], [address], . tel:[phone] Referring Provider: Tanya Coles, [address] [place] [address], [place], [address] . tel:[phone] [facility], [address], [place], [place], [address] , tel:[phone] [facility] Cellulitis and abscess of unspecified digitImpacted cerumenOther acute otitis externa 1 Arvind Keller. [address] [place] [address], [place], [address]. tel:[phone] Referring Provider: Tanya Coles, [address] [place] [address], [place], [address] . tel:[phone] [facility], [address], [place], [place], [address] , tel:[phone] [facility] Onychia and paronychia of toe 1 Juju Martínez. [address] [place] [address], [place], [place], [address], [place]. tel:[phone] Referring Provider: Tanya Coles, [address] [place] [address], [place], [address] . tel:[phone] [facility], [address], [place], [place], [address] , tel:[phone] [facility] Cellulitis and abscess of unspecified digit 1 Justyn Lozada. [address] [place] [address], [place], [place], [address], [place]. tel:[phone] Referring Provider: Tanya Coles, [address] [place] [address], [place], [address] . tel:[phone] [facility], [address], [place], [place], [address] , tel:[phone] [facility] Dysfunctions associated with sleep stages or arousal from sleep 1 Juju Martínez. [address] [place] [address], [place], [place], [address], . tel:[phone] Referring Provider: Tanya Coles, [address] [place] [address], [place], [address] . tel:[phone] [facility], [address], [place], [place], [address] , tel:[phone] [facility] Major depressive affective disorder, single episode, mild degree 1 Juju Martínez. [address] [place] [address], [place], [place], [address], . tel:[phone] Referring Provider: Tanya Coles, [address] [place] [address], [place], [address] . tel:[phone] [facility], [address], [place], [place], [address] , tel:[phone] [facility] Pure hypercholesterolem iaDental caries, unspecified 1 Juju Martínez. [address] [place] [address], [place] [address], [place], [place], [address], . tel:[phone] Referring Provider: Tanya Coles, [address] [place] [address], [place], [address] . tel:[phone] [facility], [address], [place], [place], [address] , tel:[phone] [facility] Personal history of colonic polypsInsomnia, unspecified 1 Juju Martínez. [address] [place] [address], [place], [place], [address], [place]. tel:[phone] [facility], [address], [place], [address] , [place] tel: [phone] [facility] PURE HYPERCHOLESTEROLEM 0 Juju Tanya. [address] [place] [address], [place] [address], [place], [place], [address], [place]. tel:[phone] [facility], [address], [place], [place], [address] , [place] tel: [phone] [facility] INSOMNIA NOS 0 Carmine Natalie. [address] [facility], [place], [place], [address]. tel:[phone] [facility], [address], [place], [address] , [place] tel: [phone] [facility] LONG-TERM USE MEDS NEC 0 Juju Tanya. [address] [place] [address], [place] [address], [place], [place], [address], [place]. tel:[phone] [facility], [address], [place], [place], [address] , [place] tel: [phone] [facility] MIXED HYPERLIPIDEMIA 8-201 0 Juju Tanya. [address] [place] [address], [place] [address], [place], [address], [place]. tel:[phone] [facility], [address], [place], [place], [address] , [place] tel: [phone] [facility] SYMPT FEM CLIMACT STATEABDMNAL PAIN UNSPCF SITESLEEP DISTURBANCES NECPRSNL HST COLONIC POLYPS 1 9 Juju Tanya. [address] [place] [address], [place] [address], [place], [place], [address], [place]. tel:[phone] [facility], [address], [place], [place], [address] , [place] tel: [phone] [facility] CONSTIPATION NOS 2-200 8 Juju Tanya. [address], [address], [place], [place], [address], [place]. tel:[phone] [facility], [address], [place], [place], [address] , [place] tel: [phone] [facility] ACROMIOCLAVICULAR Sep-0 6-200 6 Carmine Natalie. [address] [facility], [place], [place], [id number]. tel:[phone] [facility], [address], [place], [place], [id number] , [place] tel: [phone] [facility] ENTHESOPATHY OF KNEE NOS 4200 6 Juju Tanya. [address], [address], [place], [place], [address], [place]. tel:[phone] [facility], [address], [place], [place], [id number] , [place] tel: [phone] [facility] SCREEN LIPOID DISORDERSROUTINE MEDICAL EXAM 4200 5 Juju Tanya. [facility], [address], [place], [place], [address], [place]. tel:[phone] Family History Family Member Type Diagnosis Age At Onset Son Problem (finding) alcoholism Father Problem (finding) alcoholism Maternal aunt Problem (finding) malignant neoplasm of uterus Mother Problem (finding) malignant neop lasm of cervix uteri (Cause Of ) Cousin Problem Cancer, colon (Cause Of Deat h) Maternal aunt Problem (finding) alzheimer's disease Maternal grandmother Problem (finding) stroke 70 Maternal aunt Problem (finding) malignant neoplasm of ovary Brother Problem (finding) alcoholism Immunizations Vaccine Date Status Comments Callystro COVID vacci ne, garo-sucrose, 30mcg/0.3mL dose, 12 years and older administered Source: New Immuniza tion Record Flublok, Trivalent, preservative free, 18+ yrs, 0.5mL dosage administered Source: New Immuniza tion Record newScaleirnaty tri-sucrose COVID Vaccine 30 mcg/0.3 mL dose 12+ years administered Note: [facility] ; Source: Other Registry respiratory syncytial virus monoclonal antibody (palivizumab), intramuscular [place] ; Source: Other Registry Flublok, quadrivalent, preservative free, 0.5mL dosage administered Source: New Immunization Record SHINGRIX (Zoster vaccine recombinant, adjuvanted) administered Source: New Imm unization Record Moderna (Bivalent Booster) COVID Vac, 50mgc/0.5 mL, 18+ years administered Source: Other Regist ry Fluzone High-Dose, high dose , preservative free administered Source: Other Regist ry SHINGRIX (Zoster vaccine recombinant, adjuvanted) administered Source: Other P rovider Moderna (Low Dose) COVID19 Vaccine, 0.25mL per dose, booster dose administered Source: Other Regist ry Moderna (Low Dose) COVID19 Vaccine, 0.25mL per dose, booster dose administered Source: Other Regist ry Fluzone High-Dose, high dose , preservative free administered Source: Other Regist ry Tdap administered Source: New Imm unization Record Moderna COVID19 Vaccine, 0.5 mL per dose, 2 doses, administered 28 days apart administered Source: Other Regist ry Moderna COVID19 Vaccine, 0.5 mL per dose, 2 doses, administered 28 days apart administered Source: Other Regist ry Fluzone Quad, split virus, 0.5mL dosage administered Source: Other Regist ry Fluzone High-Dose, high dose , preservative free administered Source: Other Provid er Pneumococcal polysaccharide PPV23 administered Source: New Immuniza tion Record Fluzone High-Dose , high dose, preservative free administered Source: Oth er Registry Pneumococcal conjugate PCV 13 administere d Source: New Immunization Record Influenza, seasonal, injecta ble (3 yrs or older) administered Source: Other Provid er Influenza, seasonal, injecta ble (3 yrs or older) administered Source: Other Provid er flu (split) (3 yrs or older) administered Source: Other Provider flu (split) (3 yrs or older) administered Source: Other Provider Zoster administered Source: New Imm unization Record Tdap administered Source: New Imm unization Record Payers Payer name Insurance type Covered green party ID Authoriza tion(s) BCBS ACCESS BL [id number] BCBS ACCESS BL [id number] BCBS ACCESS BL [id number] BCBS ACCESS BL [id number] [employer] ACCESS BL [id number] [employer] ACCESS BL [id number] [employer] INACTIVE OUT OF STATE BL [id number] [employer] INACTIVE OUT OF STATE BL [id number] Social History Type Description Quantity Date Captured Comments Sex Female Smoking Status No Information Sexual Orientation Straight or heterosexual Gender Identity Female Chief Complaint And Reason For Visit No Information Reason For Referral Reason For Referral No Information Plan Of Treatment Date Type Action Status Goal Dietary management education , guidance, and counseling completed Goal Dietary management education , guidance, and counseling completed Goal Dietary management education , guidance, and counseling completed Goal Dietary management education , guidance, and counseling completed Goal Dietary management education , guidance, and counseling completed Goal Dietary management education , guidance, and counseling completed Referral Ordered: COLONOSCOPY, Flexible, Proximal To Splenic, Diagnostic, Wor W/O Collection Of Sp Appointment date/timeframe: 3 Months ordered History Of Present Illness Encounter Date Complaint History Of Prese nt Illness Chronic Conditions *See Chronic Conditions HPI follow up preventive exam Pertinent negati ves include abnormal vaginal bleeding. The patient does not drink alcohol. preventive exam Comments: Marilynn lozano health information sheet reviewed and EHR updated. Chronic Conditions *See Chronic Conditions HPI Phillip-27-2022 preventive exam Pertinent negati ves include abnormal vaginal bleeding. The patient does not use tobacco. She does not drink alcohol. follow up Chronic Conditions *See Chronic Conditions HPI Studies Reviewed COLONOSCOPY, Fl exible, Proximal To Splenic, Diagnostic, Wor W/O Collection Of Sp performed on 10/27/2017. preventive exam Chronic Conditions *See Chronic Conditions HPI preventive exam (comments) Ricarda renteria health information sheet reviewed and EHR updated. Depression Depression (comments) Her son brie dorothy back in with her 2-3 months ago from [place]. He is working on getting his business started. She is financially supporting him. She is unsure how long he is going to be living with her or she is going to have to support him. She is aggravated that she is unable to retire because of him. Her frustrations are starting to effective her at work. She is short with people. She struggles every morning to get out of bed. She is still having difficulty staying asleep waking up at 2:30 AM. She has lost interest in doing anything. Her weight is up 12 pounds. She is not exercising. She talks with her daughter. preventive exam (comments) Ricarda renteria health information sheet reviewed and EHR updated. preventive exam Chronic Conditions *See Chronic Conditions HPI Functional Status Date Functional Assessmen t No Information Instructions Date Instruction Additional Infor ramirez Continue citalopram and trazodone; your quality of life is better. Related to Moderately severe recurrent major depression You will bruise more easily due to normal aging of the skin and because you take daily aspirin. Be careful not to fall or bump into things. Your blood counts will be checked. Related to Senile purpura You are managing wit h steroid injections every three months. I prefer that you NOT use diclofenac for pain; anti-inflammatory medications can cause GI bleeding and ulcers. Over the age of 65 these medications can impair blood flow to the kidneys.You may take Tylenol Extra Strength (500mg each) - take two tablets (1,000mg) twice a day every day for maintenance. On a bad day you may take a third dose. Related to Primary osteoarthritis, unspecified site You have not needed medication. Related to GERD without esophagitis Simvastatin and aspi rin work together to help prevent new plaque build up in your arteries. Related to Atherosclerosis of both carotid arteries Congratulations on m aintaining a 16 pound weight loss over the last two years!We discussed scheduled exercise and meal planning. Related to Class 3 Obesity Follow a healthy t; avoid concentrated sweets such as regular soda, candy, cakes, pies, and cookies. Read nutrition labels for carbohydrate content and serving size.Aim for 150 minutes of exercise each week.The A1c will be checked.Try joining a gym and using the recumbent bike. Related to Prediabetes Continue daily simva statin.Your cholesterol and chemistry panels will be checked. Related to Dyslipidemia Continue to sleep on your side. Related to Obstructive sleep apnea (adult) (pediatric) Your last colonoscop y was completed on 01/12/2022; this will be repeated in 2026.It is safe to take Miralax every day to prevent constipation. Related to Personal history of colonic polyps You received the Flu vaccine and the newest COVID booster today. Related to Encounter for immunization Your mammogram was n ormal on 10/01/2021. You report having a normal mammogram on 02/11/2023; we will obtain that report. You are seeing Dr. Mclaughlin for Gynecology care due to your history of an abnormal pap smear. Your bone density test was normal on 08/16/2020. This can be rechecked in 2035. Your next tetanus booster is due in 2030.You received the Shingrix vaccine for shingles.You have completed both pneumonia vaccines; no further are needed. (Pneumovax 2018; Prevnar 2017)Continue to receive the Flu vaccine annually in the Fall.Thank you for keeping up with the COVID boosters.Thank you for having the RSV vaccine! Related to Encounter for general adult medical examination without abnormal findings Fall Risk Prevention Sep-18-2024 Urinary Incontinence Exercise Dietary management e ducation, guidance, and counseling Related to Body mass index (BMI) 45.0-49.9, adult This is an age relat ed skin change due to thinning of the skin and blood vessels being more fragile causing increased bruising. Related to Senile purpura We recommend:Flu Vac cine annually for everyone. Received today.Tetanus vaccine every 10 years. Received 08/20/2020; booster 2030.Shingles vaccines: Zostavax is a one time dose at 60; not recommended after 75. Received 05/09/2011. Shingrix is the new 2 dose vaccine given 2-6 months apart at 50. Received 10/13/2021 and 01/13/2022. No further needed.Pneumonia vaccines at 65. Received Prevnar 13 on 07/30/2016 and Pneumovax 08/27/2017. No further needed.Thank you for getting COVID vaccines. Please get the new booster when becomes available.Script sent in for the new RSV vaccine, Arexvy.Mammogram for breast cancer screening every year from 45-54 and every 2 years at 55 and older. Normal 10/01/2021.Bone density screening for osteoporosis. Normal 08/16/2020.Pap Smear for cervical cancer screening every 3-5 years until 65 or hysterectomy. WWE scheduled with Dr. Mclaughlin in January.Advanced Directives provided and reviewed. Please return to our office at your next visit or mail us a copy after completed.Information on Fall Risk and Urinary Incontinence provided and reviewed. Related to Encounter for general adult medical examination without abnormal findings Followup with Dr. Chen perrin as needed. May take Tylenol not to exceed 3000 mg in a 24 hour period. Related to Primary osteoarthritis, unspecified site Continue Citalopram and Trazodone. Status: Able to self-manage condition. Goals: Your goal is to be active. Barriers: No barriers to goal achievement have been identified. Related to Major depression, recurrent, full remission Continue Tums as nee ded. Avoid foods that aggravate your heartburn or reflux such as fatty foods, spicy foods, onions, mint, chocolate, carbonated drinks, and citrus/tomato based products. Avoid tobacco, caffeine, and alcohol. Do not eat 3 hours before lying down. You may need to elevate head of bed 4 to 8 inches. Avoid wearing tight clothing in the waist line. Related to GERD without esophagitis We discussed weight loss helps. Continue positional therapy. Related to Obstructive sleep apnea (adult) (pediatric) Congratulations on l osing 13.8 pounds!!! Continue to work on diet and exercise. Related to Morbid obesity We are checking a Hg A1C to check for diabetes.Prediabetes puts you at increased risk for developing diabetes. Diet, exercise, and maintaining a health weight are the best ways to help prevent you from developing diabetes.Avoid concentrated sweets, cakes, cookies, regular soda, juice, and candies. I encourage you to make an appointment with our vessel operator.Maintain a regular cardiovascular exercise program. I recommend that you exercise for at least 30 minutes 5 or more days per week.A good resource for pre-diabetic patients is http://[employer]/dpca/ sponsored by the Diabetes Prevention and [employer] [place] (DPCA). Related to Prediabetes I am checking blood counts, metabolic panel, and lipid panel.Continue Simvastatin. Related to Dyslipidemia Please continue Aspi rin and Simvastatin to help prevent further plaque build up in your arteries. Related to Atherosclerosis of both carotid arteries Your last colonoscop y was 01/22/2022. You will be due to repeat in 2026. Related to Personal history of colonic polyps Dietary management e ducation, guidance, and counseling Related to Body mass index (BMI) 40.0-44.9, adult Disease process Trazodone is helpful for your sl eep. Related to Insomnia, unspecified type Your first goal is t o lose 30 pounds over the next year; this is 10% of your current weight. Related to Morbid (severe) obesity due to excess calories Continue daily citalopram. Relat ed to Major depression, recurrent, full remission I am checking the A1 c today.Increase exercise. Related to Prediabetes Continue positional therapy by sleeping on your side. Related to Obstructive sleep apnea (adult) (pediatric) You may use Tums if needed for heartburn and reflux. Related to GERD without esophagitis Your mammogram was n ormal on 08/16/2020; you have one scheduled for next week. Your bone density test was normal on 08/16/2020.Continue your Gynecology care with Dr. Mclaughlin. Your next tetanus booster is due in 2030.You received the Zostavax shingles vaccine in 2011. There is now a new shingles vaccine called Shingrix that is a series of two shots given two to six months apart. Please obtain this at your local pharmacy and notify us of the dates; wait two weeks after the COVID booster to start the Shingrix. You have completed both pneumonia vaccines; no further are needed. (Pneumovax 2018; Prevnar 2016)Continue to receive the Flu vaccine annually in the Fall.Thank you for having the COVID vaccine and booster; please return to your pharmacy for the second COVID booster and notify us with the date. Related to Encounter for general adult medical examination without abnormal findings Simvastatin and aspi rin work together to help prevent new plaque build up in your arteries. Related to Atherosclerosis of both carotid arteries Your last colonoscop y was completed on 10/27/2017; please call Dr. Tanya Escobar's office at [phone] to schedule this. Related to Personal history of colonic polyps Continue daily simva statin.I am checking your cholesterol today. Related to Dyslipidemia Food Allergy Action Plan Urinary Incontinence Fall Risk Prevention Heart healthy diet & exercise Dietary management e ducation, guidance, and counseling Related to Body mass index (BMI) 45.0-49.9, adult You had a colonoscop y in 2018. We are still waiting on the pathology report. We will let you know when you are due. Related to Personal history of colonic polyps Your weight is up 12 pounds. Obesity is a health risk. Try to lose at least 10% of your body weight. We recommend you eat a low fat diet and exercise at least 5 times a week for 30 minutes or more. Related to Morbid obesity We recommend:Flu Vac cine annually for everyone. Tetanus vaccine every 10 years. Received 2010; booster received today.Shingles vaccines: Zostavax is a one time dose at 60; not recommended after 75. Received 2011. Shingrix is the new 2 dose vaccine given 2-6 months apart at 50. Please verify coverage with insurance.Pneumonia vaccines at 65. Received Prevnar 07/30/16 and Pneumovax 08/27/17; no further needed.You have received both your COVID vaccines.Mammogram for breast cancer screening every year from 45-54 and every 2 years at 55 and older. Completed on 08/16/20. We will check for results.Bone Density for osteoporosis screening at 65. Completed on 08/16/20. We will check for results.[facility] Exams with Dr. Valerie Mclaughlin.Please mail or bring us a copy of your Advanced Directives. Related to Encntr for general adult medical exam w/o abnormal findings Please continue aspi rin and Simvastatin to prevent further plaque build up in your arteries. Related to Atherosclerosis of both carotid arteries Avoid foods that agg ravate your heartburn or reflux such as fatty foods, spicy foods, onions, mint, chocolate, carbonated drinks, and citrus/tomato based products. Avoid tobacco, caffeine, and alcohol. Do not eat 3 hours before lying down. You may need to elevate head of bed 4 to 8 inches. Avoid wearing tight clothing in the waist line. Related to GERD without esophagitis We are checking a Hg A1C to check for diabetes.Prediabetes puts you at increased risk for developing diabetes. Diet, exercise, and maintaining a health weight are the best ways to help prevent you from developing diabetes.Avoid concentrated sweets, cakes, cookies, regular soda, juice, and candies. I encourage you to make an appointment with our vessel operator.Maintain a regular cardiovascular exercise program. I recommend that you exercise for at least 30 minutes 5 or more days per week.Please join our pre-diabetic meetings. You can see the front office director or call the office for more information.A good resource for pre-diabetic patients is http://[employer]/dpca/ sponsored by the Diabetes Prevention and [employer] [place] (DPCA). Related to Prediabetes Continue Citalopram. Status: Able to self-manage condition. Goals: Your goal is to be active. Barriers: No barriers to goal achievement have been identified. Related to Mild episode of recurrent major depressive disorder We are checking bloo d count, metabolic panel, and cholesterol levels today.Continue Simvastatin.Recommend heart healthy diet of low salt, low fat, and low cholesterol.Recommend exercising for at least 30 minutes 5 or more times a week. Related to Dyslipidemia Continue positional therapy. Rel ated to Obstructive sleep apnea (adult) (pediatric) Disease process Dietary management e ducation, guidance, and counseling Related to Body mass index (BMI) 45.0-49.9, adult Your weight is up 12 pounds. Obesity is a health risk. Try to lose at least 10% of your body weight. We recommend you eat a low fat diet and exercise at least 5 times a week for 30 minutes or more. Related to Morbid obesity You can try increasi ng Trazodone to 100 mg (2 tablets) this weekend and call me for increased dose if more effective. Related to Insomnia, unspecified type I am increasing your Citalopram to 40 mg daily.We discussed counseling, journaling, and exercise.Status: Not meeting treatment plan goals. Goals: Your goal is to contact a counselor. Barriers: No barriers to goal achievement have been identified. Related to Moderate episode of recurrent major depressive disorder Disease process Dietary management e ducation, guidance, and counseling Related to Body mass index (BMI) 45.0-49.9, adult Please continue aspi rin and Simvastatin to prevent further plaque build up in your arteries. Related to Atherosclerosis of both carotid arteries We discussed Kegel exercises. Re lated to Urge urinary incontinence Continue Citalopram. Status: Able to self-manage condition. Goals: Your goal is to be active. Barriers: No barriers to goal achievement have been identified. Related to Mild episode of recurrent major depressive disorder Avoid foods that agg ravate your heartburn or reflux such as fatty foods, spicy foods, onions, mint, chocolate, carbonated drinks, and citrus/tomato based products. Avoid tobacco, caffeine, and alcohol. Do not eat 3 hours before lying down. You may need to elevate head of bed 4 to 8 inches. Avoid wearing tight clothing in the waist line. Related to GERD without esophagitis Obesity is a health risk. Try to lose at least 10% of your body weight. We recommend you eat a low fat diet and exercise at least 5 times a week for 30 minutes or more. Related to Morbid obesity, unspecified obesity type Continue positional therapy. Rel ated to Obstructive sleep apnea (adult) (pediatric) We are checking a Hg A1C to check for diabetes.Prediabetes puts you at increased risk for developing diabetes. Diet, exercise, and maintaining a health weight are the best ways to help prevent you from developing diabetes.Avoid concentrated sweets, cakes, cookies, regular soda, juice, and candies. I encourage you to make an appointment with our vessel operator.Maintain a regular cardiovascular exercise program. I recommend that you exercise for at least 30 minutes 5 or more days per week.Please join our pre-diabetic meetings. You can see the front office director or call the office for more information.A good resource for pre-diabetic patients is http://[employer]/dpca/ sponsored by the Diabetes Prevention [employer] [place] (DPCA). Related to Prediabetes We are checking chol esterol levels today.Continue Simvastatin.Recommend heart healthy diet of low salt, low fat, and low cholesterol.Recommend exercising for at least 30 minutes 5 or more times a week. Related to Dyslipidemia Thank you for nicolasa doe your colonoscopy with Dr. Escobar in October. We are sending for pathology report. We think you will be due in 2020. Related to Personal history of colonic polyps We recommend:Flu Vac cine annually for everyone. Received in January.Tetanus vaccine every 10 years. Received 2010; booster 2020.Shingles vaccines: Zostavax is a one time dose at 60; not recommended after 75. Received 2011. Shingrix is the new 2 dose vaccine given 2-6 months apart at 50. Please verify coverage with insurance.Pneumonia vaccines at 65. Received Prevnar 07/30/16 and Pneumovax 08/27/17; no further needed.Mammogram for breast cancer screening every year from 45-54 and every 2 years at 55 and older. Normal in May. We are sending for records.Bone Density for osteoporosis screening at 65. Normal 05/11/16.[facility] Exams with Dr. Valerie Mclaughlin.Please mail or bring us a copy of your Advanced Directives. Related to Encntr for general adult medical exam w/o abnormal findings Disease process Disease process Disease process Dietary management e ducation, guidance, and counseling Related to Body mass index (BMI) 40.0-44.9, adult Assessments Type Assessment Date No Information Patient Care Teams Name Effective Dates (start - stop) Status Members No Information
== END 2024-07-06 08:14 | disposition home or self-care (01) ==
PROVIDERS: PCP Internal Medicine; Visit Provider Nurse Practitioner
DX: Z13.820 Encounter for screening for osteoporosis (principal); Z78.0 Asymptomatic menopausal state
CPT/HCPCS: 77080